=== PATIENT | female | born 1980 | race Caucasian/White ===

== ENCOUNTER 2017-06-09 04:53 | Inpatient (IN) | payer OTHER ==
[2017-06-09] VITALS (16 sets, daily range): BP systolic 77–120; BP diastolic 39–98; Ht 175.3 cm; Wt 97.1 kg
[~2017-06-09] VITALS: Ht 175.3 cm; Wt 97.1 kg
[~2017-06-09 04:53] MED LIST: HYDR2TAB4 PO; IBUP800T37 PO; LEVO137T23 PO; LEVO88TA45 PO; METH0.2T6 PO; PER PO; PREN-127 PO
[2017-06-09] MEDS ORDERED: METOCLOPRAMIDE 10 MG/2 ML SDV IVP ONE (04:55)
[2017-06-09] MEDS ORDERED: FAMOTIDINE 20 MG/50 ML PREMIX IVPB ONE (04:55)
[2017-06-09] MEDS ORDERED: CITRIC ACID/SOD CITRATE 30 ML PO ONE (04:55)
[2017-06-09] MEDS ORDERED: cefOXitin/DEX(*) 2GM/50ML PREM 50 ML IVPB ONE (04:55)
[2017-06-09] MEDS: LR(*) 1000 ML BAG 1,000 ML IV SCH ×2 (06:19→06:50)
[2017-06-09 06:23] LABS: PLATELET COUNT, AUTOMATED 309 K/uL (150-450)
[2017-06-09] MEDS ORDERED: LEVO-3 PO (07:06)
[2017-06-09] MEDS ORDERED: PREN-127 PO (07:06)
--- NOTE | 2017-06-09 07:11 | History & Physical ---
History of Present Illness Age of Patient: 37 : 3 Para or TPAL: 0111 EDC per LMP: Jun 16, 2017 Estimated Gestational Age: 39 Chief Complaint term h/o c/s History of Present Illness The patient is a 37 year old 3 para 0111 admitted at 39 weeks estimated gestational age with an estimated date of delivery 06/16/17. Patient is admitted for RLTCS. No vaginal bleeding. Good movement and occasional contractions. She was evaluated for active labor. She had an uncomplicated course. Her record was reviewed. History Allergies: Coded Allergies: No Known Drug Allergies (Unverified , 08/05/16) Med Rec Home Meds Reported Medications Levothyroxine Sodium (LEVOTHYROXINE SODIUM) 100 Mcg Tablet, 150 MCG PO QDAY, TAB 06/09/17 Vits W-Ca,Fe,Fa(<1MG) ( VITAMINS) 1 Each Tablet, 1 EACH PO DAILY, TAB 06/09/17 Discontinued Reported Medications Methylergonovine Mal 0.2 Mg Tab (METHERGINE 0.2 MG TAB) 0.2 Mg Tablet, 0.2 MG PO Q6H, #6 TAB 08/08/16 Vits W-Ca,Fe,Fa(<1MG) ( VITAMINS) 1 Each Tablet, 1 EACH PO DAILY, TAB 08/05/16 Levothyroxine Sodium (LEVOTHYROXINE SODIUM) 137 Mcg Tablet, 137 MCG PO QDAY 08/05/16 Discontinued Scripts Ibuprofen (IBUPROFEN) 800 Mg Tablet, 1 TAB PO Q8H, #30 TAB 0 Refills Take with food every 8 hours. Prov:DALE ESTEVEZ MD 08/08/16 Hydromorphone Hcl (HYDROMORPHONE HCL) 2 Mg Tablet, 2-4 MG PO Q4H for PAIN, #20 TAB 0 Refills Prov:DALE ESTEVEZ MD 08/08/16 Exam General Exam Vital Signs Vital Signs Date Time Temp Pulse Resp B/P (MAP) Pulse Ox O2 Delivery O2 Flow Rate FiO2 06/09/17 06:20 98.5 96 16 116/74 (88) 95 Room Air Cardiovascular: Regular Rate and Rhythm Respiratory: Clear to Auscultation Abdomen: Gravid - Non-Tender Extremities: No Edema Fetus Heart Tones: 130 FHT Category: I Medical Decision Making Data Points Result Diagram: 06/09/17 0545 Assessment and Plan Problems: (1) History of Assessment & Plan: term with h/o c/s plan RLTCS, undesired fertility desires PPBTL Copies to: DALE ESTEVEZ MD, JOHN MD Jun 09, 2017 07:10
[2017-06-09] MEDS ORDERED: MORPHINE PF 5 MG/10 ML AMP ONE (07:50)
[2017-06-09] MEDS ORDERED: fentaNYL CITR 100 MCG/2 ML AMP ONE (07:50)
[2017-06-09] MEDS ORDERED: NS 0.9% IRRIGATION 1000ML PLCT IR ONE (08:32)
[2017-06-09] MEDS ORDERED: OXYTOCIN 10 UNIT/ML SDV ONE ×3 (08:33→08:34)
[2017-06-09] MEDS ORDERED: ONDANSETRON 4 MG/2 ML VIAL ONE (08:34)
[2017-06-09] MEDS ORDERED: ePHEDrine 25 MG/5 ML DISP.SYR IVP ONE (08:34)
[2017-06-09] MEDS ORDERED: KETOROLAC 30 MG/ML VIAL ONE (08:34)
--- NOTE | 2017-06-09 09:15 | Post Operative Note ---
Operative Note - PLC CONTROLS ENGINEER Operative Day Date: Jun 09, 2017 Time: 08:30 Physicians Surgeon: HERB Government Clerk: Bhupendra GILLIAM Anesthesia: NEEL Diagnosis Pre-Op Diagnosis: IUP AT 39 EGA H/O C/S UNDESIRED FERTILITY Post-Op Diagnosis: SAME Procedure Findings: MALE APGARS 9, 9 WT. 3802 GMS NORMAL UTERUS OVARIES AND TUBES [id number] Procedure(s): RLTCS PPBTL Complications: 0 Fluids Fluids: 2500 CC LR IV Estimated Blood Loss: 500 CC Dictated Date OP Note Dictated: Jun 09, 2017 Time OP Note Dictated: 09:20 Copies to: DALE ESTEVEZ MD, JOHN MD Jun 09, 2017 09:15
[2017-06-09] MEDS ORDERED: IBUP800T37 PO (09:17)
[2017-06-09] MEDS ORDERED: OXYC-373 PO (09:17)
[2017-06-09] MEDS ORDERED: OXYTOCIN 30 UNIT/D5LR 500 ML 500 ML IV PRN (09:19)
[2017-06-09] MEDS ORDERED: DLR(*) 1000 ML BAG 1,000 ML IV PRN (09:19)
[2017-06-09] MEDS ORDERED: FAMOTIDINE(*) 20MG/50ML PREMIX 50 ML IVPB PRN (09:19)
--- NOTE | 2017-06-09 09:19 | OB/GYN Discharge Summary ---
DALE LANG MD 06/09/17 0919: Discharge Summary Reason for Hosp/Final Diag: (1) History of Status: Resolved (2) care following delivery Status: Acute Hospital Course & Plan: RLTCS AND PPBTL PERFORMED, ON DAY 2, PAIN CONTROLLED TOLERATING DIET AND ACTIVITY Lates Vital Signs Vital Signs Date Time Temp Pulse Resp B/P (MAP) Pulse Ox O2 Delivery O2 Flow Rate FiO2 06/09/17 06:20 98.5 96 16 116/74 (88) 95 Room Air Weight (Pounds): 214 Result Diagram: 06/09/17 0545 Condition: Improved Discharge: Home, Self Senior Care Meds Active Scripts Oxycodone Hcl/Acetaminophen (OXYCODONE-ACETAMINOPHEN 5-325) 1 Each Tablet, 1-2 EACH PO Q4H Y for PAIN, #30 TAB 0 Refills TAKE 1-2 TABLET NEEDED FOR PAIN - NO CLOSER THAN EVERY 4 HOURS. Prov:DALE LANG MD 06/09/17 Ibuprofen (IBUPROFEN) 800 Mg Tablet, 1 TAB PO Q8H, #30 TAB 0 Refills Take with food every 8 hours. Prov:DALE LANG MD 06/09/17 Reported Medications Levothyroxine Sodium (LEVOTHYROXINE SODIUM) 100 Mcg Tablet, 150 MCG PO QDAY, TAB 06/09/17 Vits W-Ca,Fe,Fa(<1MG) ( VITAMINS) 1 Each Tablet, 1 EACH PO DAILY, TAB 06/09/17 Discontinued Reported Medications Methylergonovine Mal 0.2 Mg Tab (METHERGINE 0.2 MG TAB) 0.2 Mg Tablet, 0.2 MG PO Q6H, #6 TAB 08/08/16 Vits W-Ca,Fe,Fa(<1MG) ( VITAMINS) 1 Each Tablet, 1 EACH PO DAILY, TAB 08/05/16 Levothyroxine Sodium (LEVOTHYROXINE SODIUM) 137 Mcg Tablet, 137 MCG PO QDAY 08/05/16 Discontinued Scripts Ibuprofen (IBUPROFEN) 800 Mg Tablet, 1 TAB PO Q8H, #30 TAB 0 Refills Take with food every 8 hours. Prov:DALE LANG MD 08/08/16 Hydromorphone Hcl (HYDROMORPHONE HCL) 2 Mg Tablet, 2-4 MG PO Q4H for PAIN, #20 TAB 0 Refills Prov:DALE LANG MD 08/08/16 Follow up with: Dr. Lang [phone] Follow up in: 6 wks PP or PO, 2 wks PO Discharge Diet: As Tolerates Discharge Activity: Pelvic Rest Copies to: DALE LANG MD, AMANDA M MD 06/11/17 0936: Discharge Summary Reason for Hosp/Final Diag: (1) History of Status: Resolved Hospital Course & Plan: term with h/o c/s plan RLTCS, undesired fertility desires PPBTL (2) care following delivery Status: Acute Hospital Course & Plan: 37yo POD 2 s/p repeat C/S and BTL. Doing well this am. Passing gas, tolerating regular diet, pain well-controlled. Ambulating without difficulty. Planning discharge home today, glenn out prior to discharge, discharge medications include ibuprofen and lortab. Result Diagram: 06/09/17 0545 Condition: Improved Discharge: Home Home Meds Active Scripts Oxycodone Hcl/Acetaminophen (OXYCODONE-ACETAMINOPHEN 5-325) 1 Each Tablet, 1-2 EACH PO Q4H Y for PAIN, #30 TAB 0 Refills TAKE 1-2 TABLET NEEDED FOR PAIN - NO CLOSER THAN EVERY 4 HOURS. Prov:DALE LANG MD 06/09/17 Ibuprofen (IBUPROFEN) 800 Mg Tablet, 1 TAB PO Q8H, #30 TAB 0 Refills Take with food every 8 hours. Prov:DALE LANG MD 06/09/17 Reported Medications Levothyroxine Sodium (LEVOTHYROXINE SODIUM) 100 Mcg Tablet, 150 MCG PO QDAY, TAB 06/09/17 Vits W-Ca,Fe,Fa(<1MG) ( VITAMINS) 1 Each Tablet, 1 EACH PO DAILY, TAB 06/09/17 Discontinued Reported Medications Methylergonovine Mal 0.2 Mg Tab (METHERGINE 0.2 MG TAB) 0.2 Mg Tablet, 0.2 MG PO Q6H, #6 TAB 08/08/16 Vits W-Ca,Fe,Fa(<1MG) ( VITAMINS) 1 Each Tablet, 1 EACH PO DAILY, TAB 08/05/16 Levothyroxine Sodium (LEVOTHYROXINE SODIUM) 137 Mcg Tablet, 137 MCG PO QDAY 08/05/16 Discontinued Scripts Ibuprofen (IBUPROFEN) 800 Mg Tablet, 1 TAB PO Q8H, #30 TAB 0 Refills Take with food every 8 hours. Prov:DALE LANG MD 08/08/16 Hydromorphone Hcl (HYDROMORPHONE HCL) 2 Mg Tablet, 2-4 MG PO Q4H for PAIN, #20 TAB 0 Refills Prov:DALE LANG MD 08/08/16 [phone] Follow up in: 6 wks PP or PO, 2 wks PO Discharge Diet: As Tolerates Discharge Activity: As Tolerates, Pelvic Rest Copies to: DALE LANG MD, JOHN MD Jun 09, 2017 09:19 YANI GILLIAM MD Jun 11, 2017 09:36
[2017-06-09] MEDS ORDERED: METOCLOPRAMIDE 10 MG/2 ML SDV IV PRN (09:20)
[2017-06-09] MEDS ORDERED: PROMETHAZINE 25 MG/ML 1 ML AMP IVP PRN (09:20)
[2017-06-09] MEDS ORDERED: ONDANSETRON 4 MG/2 ML VIAL IV PRN (09:20)
[2017-06-09] MEDS ORDERED: LANOLIN OINT 7 GM TUBE TP PRN (09:20)
[2017-06-09] MEDS ORDERED: FLUSH 10 ML SYR IVP PRN (09:20)
--- NOTE | 2017-06-09 09:47 | Anesthesia OB Pre-Anes Eval ---
History of Present Illness Anesthesia Start Date: Jun 09, 2017 Anesthesia Start Time: 07:50 OB Anesthesia Diagnosis: repeat c/section Complications: None known EDC: Jun 16, 2017 : 3 Para: 1 Pain Ratin Heart Tones: WNL Result Diagram: 06/09/17 0545 Height (Inches): 69.00 Weight (Pounds): 214 BMI Calculated: 31.60 Past Medical History Medical History: no pertinent history Surgical History: Previous Anesthesia: spinal Attended Childbirth Classes?: No Hx Anesthesia Reactions: No Hx Family Anesthesia Reaction: No Home Meds Active Scripts Oxycodone Hcl/Acetaminophen (OXYCODONE-ACETAMINOPHEN 5-325) 1 Each Tablet, 1-2 EACH PO Q4H Y for PAIN, #30 TAB 0 Refills TAKE 1-2 TABLET NEEDED FOR PAIN - NO CLOSER THAN EVERY 4 HOURS. Prov:DALE ESTEVEZ MD 06/09/17 Ibuprofen (IBUPROFEN) 800 Mg Tablet, 1 TAB PO Q8H, #30 TAB 0 Refills Take with food every 8 hours. Prov:DALE ESTEVEZ MD 06/09/17 Reported Medications Levothyroxine Sodium (LEVOTHYROXINE SODIUM) 100 Mcg Tablet, 150 MCG PO QDAY, TAB 06/09/17 Vits W-Ca,Fe,Fa(<1MG) ( VITAMINS) 1 Each Tablet, 1 EACH PO DAILY, TAB 06/09/17 Discontinued Reported Medications Methylergonovine Mal 0.2 Mg Tab (METHERGINE 0.2 MG TAB) 0.2 Mg Tablet, 0.2 MG PO Q6H, #6 TAB 08/08/16 Vits W-Ca,Fe,Fa(<1MG) ( VITAMINS) 1 Each Tablet, 1 EACH PO DAILY, TAB 08/05/16 Levothyroxine Sodium (LEVOTHYROXINE SODIUM) 137 Mcg Tablet, 137 MCG PO QDAY 08/05/16 Discontinued Scripts Ibuprofen (IBUPROFEN) 800 Mg Tablet, 1 TAB PO Q8H, #30 TAB 0 Refills Take with food every 8 hours. Prov:DALE ESTEVEZ MD 08/08/16 Hydromorphone Hcl (HYDROMORPHONE HCL) 2 Mg Tablet, 2-4 MG PO Q4H for PAIN, #20 TAB 0 Refills Prov:DALE ESTEVEZ MD 08/08/16 Allergies: Coded Allergies: No Known Drug Allergies (Unverified , 08/05/16) Anesthesia OB ROS Neurological: No migraines/headaches, No seizures, No neuropathy ENT: Denies Tooth caps, Denies Loose teeth, Denies Chipped teeth, Denies Dentures, Denies Bridges, Denies Retainers, Denies Veneers, Denies Implants, Denies Tongue ring, Other Pulmonary: No asthma, No smoker (pks/day/yrs) Airway Class: ll Cardiovascular ROS: No edema, No arrhythmia GI ROS: NPO Last Solids Date: Jun 08, 2017 Last Solids Time: 22:00 ROS: No Herpes, No STD(s), No Liver Disease, No Renal Disease Endocrine ROS: No diabetes, No gestational diabetes, No thyroid disorder Musculoskeletal ROS: No low back pain, No low back injury, No scoliosis ASA Classification: 2 Assessment and Plan Anesthesia Plan: SAB Assessment Spinal block risks and benefits explained to patient's satisfaction. Reviewed last spinal experience with pt. Explained use of astromorph for post-op pain management. Questions invited, none asked. Anesthesia Stop Day: Jun 09, 2017 Anesthesia Stop Time: 09:25 REJI SHAIKH CRNA Jun 09, 2017 09:47
[2017-06-09] MEDS ORDERED: diphenhydrAMINE 25 MG CAP PO PRN (09:50)
[2017-06-09] MEDS ORDERED: NALOXONE HCL 0.4 MG/ML VIAL IV PRN (09:50)
[2017-06-09] MEDS: NALBUPHINE HCL 10 MG/ML AMP IVP PRN ×2 (12:07→15:02)
[2017-06-09] MEDS: SIMETHICONE 80 MG CHEW CHEW SCH ×3 (13:00→20:45)
--- NOTE | 2017-06-09 14:48 | OB/GYN Progress Note ---
OB Subjective Progress Notes Subjective Patient reports having some nausea, improved with medication. No emesis. Pain well-controlled. Denies SOB/CP. . GI: POS Nausea, NEG Vomiting, NEG Flatus, NEG Bowel Movement : Vaginal Bleeding, Scant, Other (sandoval catheter in place) Pain: Comfortable, Using IV Pain Meds Neurological: No Headache, No Other Eyes: No Visual Disturbances OB Objective Physical Exam Vital Signs Date Time Temp Pulse Resp B/P (MAP) Pulse Ox O2 Delivery O2 Flow Rate FiO2 06/09/17 11:15 98.9 75 16 105/62 (76) 96 06/09/17 11:00 Room Air 06/09/17 10:10 1.0 Intake and Output 06/10/17 07:00 Intake Total 3050 ml Output Total 1650 ml Balance 1400 ml Intake IV Total 3050 ml Output Urine Total 150 ml Estimated Blood Loss 500 ml Other 1000 ml General Appearance: Alert/Awake/No Acute Distress Neurological: No Gross deficits Cardiovascular: Regular Rate and Rhythm Respiratory: Clear to Auscultation Abdomen: Soft, Non-Tender, Non-Distended, Bowel Sounds Present (hypoactive) Incision: Clean, Dry, Intact, Dressing Extremities: No Cyanosis,Clubbing or Edema, No Edema Integumentary: Skin Intact without Lesions or Rash Psychological: Alert & Oriented X3, Appropriate Mood & Affect Result Diagram: 06/09/17 0545 Assessment and Plan Problems: (1) History of Status: Resolved (2) care following delivery Status: Acute Assessment & Plan: 37yo POD 0 s/p repeat C/S and BTL. Some mild post- op nausea. Hypoactive, but present bowel sounds. Otherwise well. -routine post-op care -anti-emetics as needed -encourage YANI GILLIAM MD Jun 09, 2017 14:48
[2017-06-09] MEDS: KETOROLAC 30 MG/ML VIAL IVP SCH ×2 (15:04→21:02)
--- NOTE | 2017-06-09 15:37 | OPERATIVE REPORT 1 ---
EVENT DATE: June 09, 2017 SURGEON: Raymond Lang MD ANESTHESIOLOGIST: Shakila Dhillon CRNA ANESTHESIA: Intrathecal. AIRPLANE WOODWORKER: ABDIEL Tijerina PREOPERATIVE DIAGNOSES 1. Intrauterine at 39 weeks. 2. History of section. 3. Undesired fertility. POSTOPERATIVE DIAGNOSES 1. Intrauterine at 39 weeks. 2. History of section. 3. Undesired fertility. PROCEDURES PERFORMED 1. Repeat low transverse section. 2. bilateral tubal ligation. COMPLICATIONS None. FLUIDS Lactated Ringer's 2500 mL IV. ESTIMATED BLOOD LOSS 500 mL INDICATIONS Patient is a 37-year-old G3, P1, admitted at 39 weeks with history of and undesired fertility. Desired to proceed with repeat low transverse C- section and bilateral tubal ligation. FINDINGS Male infant with Apgars 9 at one minute and 9 at five minutes, weighing 3802 g. Normal-appearing uterus, ovaries, and tubes. DESCRIPTION OF PROCEDURE After informed consent was obtained, the patient was taken to the operating room with the IV running, placed in a sitting where intrathecal anesthetic was obtained without difficulty. She was then placed in the supine position with a leftward tilt, prepped and draped in the usual fashion. A Giron catheter had been placed in the OR. A previous Pfannenstiel skin incision was followed. The scar at the skin surface was removed with scalpels and the Bovie. Incision was carried through to the underlying layer of fascia with the Bovie. Fascia was nicked in the midline, extended laterally with Hickman scissors. The rectus fascia was dissected off the rectus muscles with both blunt and sharp dissection in the superior, then the inferior aspect of the incision. The rectus muscles were divided in the midline and the peritoneum entered sharply with Metzenbaum scissors. We created the peritoneal incisions superiorly, then inferiorly with good visualization of the bladder. Bladder blade was placed. A bladder flap was created with Metzenbaum scissors. Bladder blade was then replaced. A low transverse uterine incision made with a scalpel, extended laterally with digital technique of the air control electronics operator. The 's vertex was delivered through the uterine incision. The oropharynx and nasopharynx were bulb suctioned. A nuchal cord was noted, delivered around the head as necessary for delivery. The remainder of the infant delivered with ease. Again , the oropharynx and nasopharynx were bulb suctioned, cord clamped times two and cut, handed to nursing personnel in attendance for delivery. Cord blood was obtained. Placenta delivered intact manually. Pitocin 20 units was run in the IV bag to help firm the uterus. Uterus was exteriorized and cleared of all clot and debris. Uterine incision closed with 0 Vicryl in a running locked fashion. A second imbricating layer of 0 Vicryl was used. Posterior cul-de- sac was copiously irrigated. The tubal ligation was then performed. A mid portion of tube was grasped with a Gay clamp and knuckled, doubly ligated with 0 chromic, and then mid portion of tube removed on the patient's right. The same procedure performed on the left by grasping a mid portion of tube, doubly ligating with 0 chromic, and mid portion of tube transected. Uterine incision was inspected and noted to be hemostatic. The uterus was returned to the abdominal cavity. Left and right pericolic gutters were cleared of all clot and debris. The uterine incision was inspected and found to be hemostatic. The peritoneal incision was then closed with 3-0 Vicryl along with the rectus muscles in a running fashion. Subfascial compartment was inspected and any bleeding made hemostatic with the Bovie. Irrigation was performed. The fascia was closed with 0 Vicryl in a running fashion. Subcutaneous space was irrigated. Any bleeding made hemostatic with the Bovie. The subcutaneous space was then approximated with 3-0 Vicryl in a running fashion. Skin closed with glenn. All sponge, lap, needle, and instrument counts were correct. The patient was taken to the recovery room in stable condition. ERIKA
[2017-06-09] MEDS: FAMOTIDINE 20 MG TAB PO SCH (21:02)
[2017-06-09] MEDS: DOCUSATE CALCIUM 240 MG CAP PO SCH (21:02)
[2017-06-10] MEDS: KETOROLAC 30 MG/ML VIAL IVP SCH (03:09)
[2017-06-10 05:14] VITALS: BP 94/54
[2017-06-10 05:23] VITALS: BP 109/68
[2017-06-10 07:25] LABS: PLATELET COUNT, AUTOMATED 258 K/uL (150-450)
--- NOTE | 2017-06-10 08:55 | OB/GYN Progress Note ---
OB Subjective Progress Notes Subjective Ms. Schulte reports she is feeling much better this am. No further nausea, no emesis. Passing flatus. Pain well controlled. . GI: POS Flatus, NEG Nausea, NEG Vomiting, NEG Bowel Movement : Vaginal Bleeding, Scant Pain: Mild, Tolerating PO Pain Meds Neurological: No Headache, No Other Eyes: No Visual Disturbances OB Objective Physical Exam Vital Signs Date Time Temp Pulse Resp B/P (MAP) Pulse Ox O2 Delivery O2 Flow Rate FiO2 06/10/17 05:23 109/68 (82) 06/10/17 05:14 98.4 78 18 96 Room Air 06/09/17 23:48 0.5 General Appearance: Alert/Awake/No Acute Distress Neurological: No Gross deficits Cardiovascular: Regular Rate and Rhythm Respiratory: Clear to Auscultation Abdomen: Soft, Non-Tender, Non-Distended, Fundus Firm, Non-Tender, Bowel Sounds Present (hypoactive) Incision: Clean, Dry, Intact, Dressing Extremities: No Cyanosis,Clubbing or Edema, No Edema Integumentary: Skin Intact without Lesions or Rash Psychological: Alert & Oriented X3, Appropriate Mood & Affect Result Diagram: 06/10/17 0647 Assessment 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 Doing well this am. Passing gas, tolerating regular diet, pain well-controlled. -routine post-op care, discontinue sandoval catheter, up and ambulating, may shower -encourage -anticipate discharge tomorrow am YANI GILLIAM MD Jun 10, 2017 08:55
[2017-06-10 09:30] VITALS: BP 103/60
[2017-06-10] MEDS: DOCUSATE CALCIUM 240 MG CAP PO SCH ×2 (10:19→20:33)
[2017-06-10] MEDS: FAMOTIDINE 20 MG TAB PO SCH ×2 (10:19→20:33)
[2017-06-10] MEDS: IBUPROFEN 800 MG TAB PO SCH ×2 (10:20→17:34)
[2017-06-10] MEDS: SIMETHICONE 80 MG CHEW CHEW SCH ×4 (10:20→20:34)
[2017-06-10 13:30] VITALS: BP 111/66
[2017-06-10 19:45] VITALS: BP 109/71
[2017-06-11] MEDS: IBUPROFEN 800 MG TAB PO SCH ×2 (01:17→08:47)
[2017-06-11 04:44] VITALS: BP 114/74
[2017-06-11 07:55] VITALS: BP 105/59
[2017-06-11] MEDS: DOCUSATE CALCIUM 240 MG CAP PO SCH (08:47)
[2017-06-11] MEDS: FAMOTIDINE 20 MG TAB PO SCH (08:47)
[2017-06-11] MEDS: SIMETHICONE 80 MG CHEW CHEW SCH (08:47)
[2017-06-11] MEDS ORDERED: INFLUENZA VIRUS VAC 0.5 ML SYR IM ONLY ONE (09:00)
--- NOTE | 2017-06-11 09:35 | OB/GYN Progress Note ---
OB Subjective Progress Notes Subjective Patient reports feels well overall. Tolerating a regular diet, without nausea or emesis. Pain well controlled with PO pain meds. Voiding urine and passing gas without difficulty. going well. GI: POS Flatus, NEG Nausea, NEG Vomiting, NEG Bowel Movement : Voiding Well, Vaginal Bleeding, Scant Pain: Mild, Tolerating PO Pain Meds Neurological: No Headache, No Other Eyes: No Visual Disturbances OB Objective Physical Exam Vital Signs Date Time Temp Pulse Resp B/P (MAP) Pulse Ox O2 Delivery O2 Flow Rate FiO2 06/11/17 07:55 97.8 79 18 105/59 (74) Room Air 06/11/17 04:44 95 06/09/17 23:48 0.5 General Appearance: Alert/Awake/No Acute Distress Neurological: No Gross deficits Cardiovascular: Regular Rate and Rhythm Respiratory: Clear to Auscultation Abdomen: Soft, Non-Tender, Non-Distended, Fundus Firm, Non-Tender, Bowel Sounds Present (hypoactive) Incision: Clean, Dry, Intact, Dressing, [place] Extremities: No Cyanosis,Clubbing or Edema, No Edema Integumentary: Skin Intact without Lesions or Rash Psychological: Alert & Oriented X3, Appropriate Mood & Affect Result Diagram: 06/10/17 0647 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 Doing well this am. Passing gas, tolerating regular diet, pain well-controlled. Ambulating without difficulty. Planning discharge home today, glenn out prior to discharge, discharge medications include ibuprofen and lortab. YANI GILLIAM MD Jun 11, 2017 09:35
[2017-06-11] MEDS ORDERED: DOCU240C67 PO (10:29)
== END 2017-06-11 13:40 | disposition home or self-care (01) | DRG 766 ==
LOC: OB 04:53
PROVIDERS: ADMIT Obstetrics & Gynecology; ATTEND Obstetrics & Gynecology
PROC: 10D00Z1 Extraction of Products of Conception, Low, Open Approach (ICD-10-PCS; principal; 2017-06-09 07:30)
PROC: 0UB70ZZ Excision of Bilateral Fallopian Tubes, Open Approach (ICD-10-PCS; 2017-06-09 07:30)
DX: O34.211 Maternal care for low transverse scar from previous cesarean delivery (principal); O69.81X0 Labor and delivery complicated by cord around neck, without compression, not applicable or unspecified; O99.284 Endocrine, nutritional and metabolic diseases complicating childbirth; E03.9 Hypothyroidism, unspecified; Z37.0 Single live birth; Z3A.39 39 weeks gestation of pregnancy; Z30.2 Encounter for sterilization
CPT/HCPCS: 36415; 85025; 86850; 86900; 86901; 88302; J0694; J1885; J2270; J2300; J2405; J2590; J2765; J3010; J3490; J7120